=== PATIENT | female | born 1990 | race Caucasian/White ===

== ENCOUNTER 2022-06-27 04:04 | Day surgery (SDC) | payer OTHER ==
[2022-06-25 11:18] VITALS: BMI 18.3
[2022-06-27] MEDS ORDERED: BUPIVACAINE HCL/PF 0.5% (5MG/ML) 10 ML VIAL ONE (10:15)
[2022-06-27] MEDS ORDERED: LIDOCAINE 1%/EPI 1:100000 (20 ML MULTI DOSE VIAL) ONE (10:15)
[2022-06-27] MEDS ORDERED: ceFAZolin SODIUM 1 GM VIAL IVPB ONE (10:16)
[2022-06-27] MEDS ORDERED: LIDOCAINE 1%/EPI 1:100000 (20 ML MULTI DOSE VIAL) IJ ONE (10:17)
[2022-06-27] MEDS ORDERED: BUPIVACAINE HCL/PF 0.5% (5MG/ML) 10 ML VIAL IJ ONE (10:17)
[2022-06-27] MEDS ORDERED: MIDAZOLAM HCL 2 MG/2 ML SINGLE DOSE VIAL ONE (11:22)
[2022-06-27] MEDS ORDERED: SUCCINYLCHOLINE CHLORIDE 200 MG/10 ML SYRINGE ONE (11:22)
[2022-06-27] MEDS ORDERED: PROPOFOL 20 ML ONE (11:22)
[2022-06-27 11:58] VITALS: BP 125/75; PULSE 60; RESP 16; TEMP 98.9
== END 2022-06-27 12:00 | disposition home or self-care (01) ==
LOC: JASU-SURG 04:04
PROVIDERS: ATTEND Surgery
DX: Z53.8 Procedure and treatment not carried out for other reasons (principal)